=== PATIENT | female | born 1930 | race Caucasian/White ===

== ENCOUNTER 2021-06-25 06:18 | Inpatient (IN) | payer OTHER, MEDICARE ==
[2021-06-25] MEDS ORDERED: ACETAMINOPHEN 500 MG TABLET (FP) PO ONE (06:34)
[2021-06-25] MEDS ORDERED: ACETAMINOPHEN 325 MG TABLET (FP) PO ONE (06:34)
[2021-06-25] MEDS ORDERED: ACETAMINOPHEN 325 MG TABLET (FP) ONE (07:04)
[2021-06-25] MEDS ORDERED: TETRACAINE 0.5% HCL 0.6ML DROPPER.BOTTLE OD ONE (08:05)
[2021-06-25] MEDS ORDERED: FLUORESCEIN NA 1 EA STRIP OD ONE (08:05)
[2021-06-25] MEDS ORDERED: FLUORESCEIN NA 1 EA STRIP ONE (08:19)
[2021-06-25] MEDS ORDERED: TETRACAINE 0.5% OPHTH SOLN 2 ML BOTTLE ONE (08:21)
[2021-06-25 08:26] LABS: HEMOGLOBIN 13.9 GM/dL (10.7-15.3); MCH 30.9 pg (25.7-33.7); MCHC 31.5 g/dl (32.0-36.0); MEAN CELL VOLUME 98.1 fl (80-96); MEAN PLT VOLUME 8.3 fl (7.5-11.1); PLATELET COUNT 88 10^3/uL (134-434); RBC 4.49 M/mm3 (3.60-5.2); RDW 15.1 % (11.6-15.6)
[2021-06-25 08:34] LABS: INR 1.42 (0.83-1.09); PROTHROMBIN TIME (PATIENT) 16.4 SEC (9.7-13.0)
[2021-06-25 08:36] LABS: ACTIVATED PTT 35.5 SECONDS (25.2-36.5)
[2021-06-25 08:40] LABS: WHITE BLOOD COUNT 103.6 K/mm3 (4.0-10.0)
[2021-06-25 08:42] LABS: ALBUMIN 3.9 g/dl (3.4-5.0); BLOOD UREA NITROGEN 15.1 mg/dL (7-18); MAGNESIUM 2.1 mg/dL (1.8-2.4)
[2021-06-25 08:45] LABS: CREATININE 0.7 mg/dL (0.55-1.3)
[2021-06-25 08:46] LABS: TOT PROT 6.5 g/dl (6.4-8.2)
[2021-06-25 08:47] LABS: BILIRUBIN,TOTAL 0.6 mg/dL (0.2-1)
[2021-06-25 08:50] LABS: N-TERMINAL BNP 921.3 pg/ml (5-450)
[2021-06-25] MEDS ORDERED: SODIUM CHLORIDE 0.9% 500 ML INFUS.BAG IV ONE (09:20)
[2021-06-25] MEDS ORDERED: LOSARTAN POTASSIUM 50 MG TABLET PO ONE (12:15)
[2021-06-25 12:19] LABS: ANISOCYTOSIS 0; MACROCYTOSIS 0
[2021-06-25] MEDS ORDERED: PANTOPRAZOLE 40 MG TABLET ONE (12:22)
[2021-06-25] MEDS ORDERED: LOSARTAN POTASSIUM 50 MG TABLET ONE (12:22)
[2021-06-25] MEDS: PANTOPRAZOLE 40 MG TABLET PO SCH (12:42)
[2021-06-25] MEDS ORDERED: ACETAMINOPHEN 325 MG TABLET (FP) PO PRN (12:46)
[2021-06-25 15:06] LABS: URINE APPEARANCE CLEAR; URINE BILIRUBIN NEGATIVE (NEGATIVE); URINE COLOR YELLOW; URINE GLUCOSE (UA) NEGATIVE (NEGATIVE); URINE KETONE NEGATIVE (NEGATIVE); URINE LEUK ESTERASE NEGATIVE (NEGATIVE); URINE NITRITE NEGATIVE (NEGATIVE); URINE PROTEIN NEGATIVE (NEGATIVE); URINE UROBILINOGEN 0.2 mg/dL (0.2-1.0)
[2021-06-25 18:42] VITALS: BMI 26.6
[2021-06-25 21:38] LABS: HEMATOCRIT 40.9 % (32.4-45.2); HEMOGLOBIN 12.9 GM/dL (10.7-15.3); MCH 31.1 pg (25.7-33.7); MCHC 31.6 g/dl (32.0-36.0); MEAN CELL VOLUME 98.6 fl (80-96); PLATELET COUNT 87 10^3/uL (134-434); RBC 4.15 M/mm3 (3.60-5.2)
[2021-06-25 21:44] LABS: INR 1.4 (0.83-1.09); PROTHROMBIN TIME (PATIENT) 16.2 SEC (9.7-13.0)
[2021-06-25 21:45] LABS: WHITE BLOOD COUNT 113.6 K/mm3 (4.0-10.0)
[2021-06-25 21:46] LABS: ACTIVATED PTT 35.9 SECONDS (25.2-36.5)
[2021-06-25 22:33] LABS: ANISOCYTOSIS 1+; MACROCYTOSIS 1+; PLATELET ESTIMATE DECREASED
[2021-06-26] MEDS: LOSARTAN POTASSIUM 50 MG TABLET PO SCH (10:15)
[2021-06-26] MEDS: PANTOPRAZOLE 40 MG TABLET PO SCH (10:15)
[2021-06-27] MEDS: LOSARTAN POTASSIUM 50 MG TABLET PO SCH (09:55)
[2021-06-27] MEDS: PANTOPRAZOLE 40 MG TABLET PO SCH (09:55)
[2021-06-28 07:32] LABS: HEMATOCRIT 41.4 % (32.4-45.2); HEMOGLOBIN 13.7 GM/dL (10.7-15.3); MCH 32.2 pg (25.7-33.7); MCHC 33.1 g/dl (32.0-36.0); MEAN CELL VOLUME 97.2 fl (80-96); MEAN PLT VOLUME 8.6 fl (7.5-11.1); PLATELET COUNT 107 10^3/uL (134-434); RBC 4.26 M/mm3 (3.60-5.2)
[2021-06-28 08:28] LABS: WHITE BLOOD COUNT 145.5 K/mm3 (4.0-10.0)
[2021-06-28] MEDS: PANTOPRAZOLE 40 MG TABLET PO SCH (09:23)
[2021-06-28] MEDS: LOSARTAN POTASSIUM 50 MG TABLET PO SCH (09:23)
[2021-06-28 10:11] LABS: ANISOCYTOSIS 0; HELMET CELLS 0; HOWELL-JOLLY BODIES 0; MACROCYTOSIS 0; OVALOCYTE 0; ROULEAU 0; SICKELED CELLS 0; TARGET CELLS 0; TEAR DROP CELLS 0; TOXIC GRANULATION 0
[2021-06-28] MEDS: MULTIVITAMINS THER W-MINERALS COMBO TABLET (FP) PO SCH (13:39)
[2021-06-28] MEDS: CHOLECALCIFEROL (VIT D3) 1,000 UNIT (25 MCG) TABLET PO SCH (13:39)
[2021-06-28] MEDS: OMEGA-3 ACID ETHYL ESTERS (FATTY-ACIDS) 1 GM CAPSULE (FP) PO SCH ×2 (13:39→21:43)
[2021-06-28] MEDS: FLUoxetine HCL 20 MG CAPSULE PO SCH (13:39)
[2021-06-28] MEDS ORDERED: ROSUVASTATIN CA 5 MG TABLET PO SCH (22:00)
[2021-06-29 07:25] LABS: HEMATOCRIT 42.3 % (32.4-45.2); MEAN CELL VOLUME 97.1 fl (80-96); MEAN PLT VOLUME 8.1 fl (7.5-11.1); PLATELET COUNT 105 10^3/uL (134-434); RBC 4.36 M/mm3 (3.60-5.2); RDW 15.1 % (11.6-15.6)
[2021-06-29 07:37] LABS: WHITE BLOOD COUNT 148.6 K/mm3 (4.0-10.0)
[2021-06-29] MEDS: MULTIVITAMINS THER W-MINERALS COMBO TABLET (FP) PO SCH (09:33)
[2021-06-29] MEDS: FLUoxetine HCL 20 MG CAPSULE PO SCH (09:33)
[2021-06-29] MEDS: PANTOPRAZOLE 40 MG TABLET PO SCH (09:33)
[2021-06-29] MEDS: CHOLECALCIFEROL (VIT D3) 1,000 UNIT (25 MCG) TABLET PO SCH (09:33)
[2021-06-29] MEDS: OMEGA-3 ACID ETHYL ESTERS (FATTY-ACIDS) 1 GM CAPSULE (FP) PO SCH (09:33)
[2021-06-29] MEDS: LOSARTAN POTASSIUM 50 MG TABLET PO SCH (09:34)
[2021-06-29 09:39] LABS: ANISOCYTOSIS 0; HELMET CELLS 0; HOWELL-JOLLY BODIES 0; MACROCYTOSIS 0; OVALOCYTE 0; ROULEAU 0; SICKELED CELLS 0; TARGET CELLS 0; TEAR DROP CELLS 0; TOXIC GRANULATION 0
[2021-06-29 20:08] VITALS: BP 124/76; PULSE 94; TEMP 97.9
== END 2021-06-29 19:45 | DRG 184 ==
LOC: JER 06:18 → JERBED 10:01 → J4W 18:10 → UNDODISIN 06-26 05:30 → J4W 06-27 19:36
PROVIDERS: ADMIT Internal Medicine; ATTEND Internal Medicine
DX: S22.41XA Multiple fractures of ribs, right side, initial encounter for closed fracture (principal); S02.85XA Fracture of orbit, unspecified, initial encounter for closed fracture; S32.019A Unspecified fracture of first lumbar vertebra, initial encounter for closed fracture; S06.0X9A Concussion with loss of consciousness of unspecified duration, initial encounter; C91.10 Chronic lymphocytic leukemia of B-cell type not having achieved remission; I48.20 Chronic atrial fibrillation, unspecified; S02.2XXA Fracture of nasal bones, initial encounter for closed fracture; I10 Essential (primary) hypertension; J45.909 Unspecified asthma, uncomplicated; R16.2 Hepatomegaly with splenomegaly, not elsewhere classified; K57.90 Diverticulosis of intestine, part unspecified, without perforation or abscess without bleeding; D69.6 Thrombocytopenia, unspecified; R26.81 Unsteadiness on feet; M62.81 Muscle weakness (generalized); E78.5 Hyperlipidemia, unspecified; I25.10 Atherosclerotic heart disease of native coronary artery without angina pectoris; H05.231 Hemorrhage of right orbit; D72.829 Elevated white blood cell count, unspecified; W18.30XA Fall on same level, unspecified, initial encounter; W01.0XXA Fall on same level from slipping, tripping and stumbling without subsequent striking against object, initial encounter; Z95.5 Presence of coronary angioplasty implant and graft
CPT/HCPCS: 36415; 70450-TC; 70486-TC; 70498-TC; 71045-TC-FY; 71101-TC-RT-FY; 71260-TC; 72125-TC; 72170-TC-FY; 74177-TC; 80053; 81003; 83690; 83735; 83880; 84484; 85025; 85384; 85610; 85730; 86850; 86900; 86901; 87086; 93005; 93010; 93880-TC; 94010; 97116-GP; 97162-GP; 99285-25; C9803-CS; Q9967; U0003; U0005

== ENCOUNTER 2021-12-15 19:12 | Inpatient (IN) | payer OTHER, MEDICARE ==
[2021-12-15] MEDS ORDERED: VANCOMYCIN 1 GM in D5W (PRE-DOCKED) 1,000 MG/250 ML IVPB ONE (21:26)
[2021-12-15] MEDS ORDERED: PIPERACILLIN/TAZOB 4.5 GM 4.5 GM in DEXTROSE 5%-WATER 100 ML IVPB ONE (21:26)
[2021-12-15] MEDS ORDERED: PIPERACILLIN/TAZOB 4.5 GM 4.5 GM/100 ML BAG IVPB ONE (21:52)
[2021-12-15] MEDS ORDERED: VANCOMYCIN/WATER FOR INJ (PEG) 1,000 MG/200 ML BAG IVPB ONE (21:52)
[2021-12-15 21:58] LABS: VENOUS BASE EXCESS -1.9 mmol/L (-2-2); VENOUS O2 SATURATION 81.3 % (70-80); VENOUS PCO2 43.8 mmHg (38-52); VENOUS PH 7.352 (7.310-7.410)
[2021-12-15 22:05] LABS: BASO % 0.1 % (0-2.0); EOS % 0.2 % (0-4.5); HEMATOCRIT 38.5 % (32.4-45.2); HEMOGLOBIN 12.2 GM/dL (10.7-15.3); LYMPH % 90.6 % (8-40); MCH 31.7 pg (25.7-33.7); MCHC 31.8 g/dl (32.0-36.0); MEAN CELL VOLUME 99.7 fl (80-96); MEAN PLT VOLUME 9.1 fl (7.5-11.1); MONO % 2.1 % (3.8-10.2); RBC 3.86 M/mm3 (3.60-5.2); RDW 17.6 % (11.6-15.6)
[2021-12-15 22:09] LABS: PLATELET COUNT 26 10^3/uL (134-434); WHITE BLOOD COUNT 152.2 K/mm3 (4.0-10.0)
[2021-12-15 22:14] LABS: INR 1.44 (0.83-1.09); PROTHROMBIN TIME (PATIENT) 16.6 SEC (9.7-13.0)
[2021-12-15 22:17] LABS: ACTIVATED PTT 31.7 SECONDS (25.2-36.5)
[2021-12-15 22:28] LABS: CALCIUM 8.6 mg/dL (8.5-10.1); EPI CELLS 6 /uL (0-25.1); HYALINE CASTS 1 /uL (0-3.1); URINE APPEARANCE CLEAR; URINE BACTERIA 2 /uL (0-1359); URINE BILIRUBIN NEGATIVE (NEGATIVE); URINE COLOR DK YELLOW; URINE GLUCOSE (UA) NEGATIVE (NEGATIVE); URINE KETONE TRACE (NEGATIVE); URINE LEUK ESTERASE NEGATIVE (NEGATIVE); URINE NITRITE NEGATIVE (NEGATIVE); URINE PROTEIN 1+ (NEGATIVE); URINE RBC 16 /uL (0-23.9); URINE WBC 5 /uL (0-25.8)
[2021-12-15 22:29] LABS: ALBUMIN 3.7 g/dl (3.4-5.0); MAGNESIUM 2.1 mg/dL (1.8-2.4)
[2021-12-15 22:32] LABS: CREATININE 0.7 mg/dL (0.55-1.3)
[2021-12-15 22:37] LABS: N-TERMINAL BNP 2818.6 pg/ml (5-450)
[2021-12-15 22:43] LABS: ANISOCYTOSIS 2+; MACROCYTOSIS 0
[2021-12-16] MEDS ORDERED: FUROSEMIDE 40 MG/4 ML INJECTABLE VIAL IVPUSH ONE (01:38)
[2021-12-16] MEDS ORDERED: FUROSEMIDE 40 MG/4 ML INJECTABLE VIAL ONE (01:47)
[2021-12-16 09:55] LABS: HEMATOCRIT 37.9 % (32.4-45.2); HEMOGLOBIN 11.6 GM/dL (10.7-15.3); MCH 30.9 pg (25.7-33.7); MCHC 30.5 g/dl (32.0-36.0); MEAN CELL VOLUME 101.4 fl (80-96); MEAN PLT VOLUME 8.3 fl (7.5-11.1); RBC 3.74 M/mm3 (3.60-5.2); RDW 17.5 % (11.6-15.6)
[2021-12-16] MEDS ORDERED: APIXABAN 2.5 MG TABLET PO SCH (10:00)
[2021-12-16 10:04] LABS: PLATELET COUNT 19 10^3/uL (134-434); WHITE BLOOD COUNT 119.2 K/mm3 (4.0-10.0)
[2021-12-16 10:18] LABS: CALCIUM 8.5 mg/dL (8.5-10.1)
[2021-12-16 10:19] LABS: ALBUMIN 3.6 g/dl (3.4-5.0); BLOOD UREA NITROGEN 15.2 mg/dL (7-18); MAGNESIUM 2.1 mg/dL (1.8-2.4)
[2021-12-16 10:21] LABS: CREATININE 0.6 mg/dL (0.55-1.3); PHOSPHOROUS 4.1 mg/dL (2.5-4.9)
[2021-12-16 10:23] LABS: BILIRUBIN,TOTAL 1.1 mg/dL (0.2-1); TOT PROT 5.8 g/dl (6.4-8.2)
[2021-12-16 11:50] LABS: ANISOCYTOSIS 1+; MACROCYTOSIS 0
[2021-12-16] MEDS: METOPROLOL TARTRATE 25 MG TABLET (FP) PO SCH (22:08)
[2021-12-16] MEDS: GABAPENTIN 100 MG CAPSULE PO SCH (22:08)
[2021-12-16] MEDS: ZINC OXIDE 20% TOPICAL OINTMENT 30 GM TUBE TP SCH (22:09)
[2021-12-16] MEDS: NYSTATIN POWDER 100,000 UNITS/GM - 15 GM TOPICAL POWDER TP SCH (22:09)
[2021-12-17] MEDS: LEVOTHYROXINE NA 50 MCG TABLET (FP) PO SCH (06:21)
[2021-12-17] MEDS: FUROSEMIDE 40 MG/4 ML INJECTABLE VIAL IVPUSH SCH (06:52)
[2021-12-17] MEDS: METOPROLOL TARTRATE 25 MG TABLET (FP) PO SCH ×2 (09:31→21:40)
[2021-12-17] MEDS: GABAPENTIN 100 MG CAPSULE PO SCH ×2 (09:31→21:40)
[2021-12-17] MEDS: NYSTATIN POWDER 100,000 UNITS/GM - 15 GM TOPICAL POWDER TP SCH ×2 (09:32→21:42)
[2021-12-17] MEDS: ZINC OXIDE 20% TOPICAL OINTMENT 30 GM TUBE TP SCH ×2 (09:32→21:41)
[2021-12-17] MEDS ORDERED: FUROSEMIDE 40 MG/4 ML INJECTABLE VIAL IVPUSH SCH (10:00)
[2021-12-17] MEDS: FLUoxetine HCL 20 MG CAPSULE PO SCH (11:15)
[2021-12-17] MEDS: LOSARTAN POTASSIUM 50 MG TABLET PO SCH (11:15)
[2021-12-17 12:42] LABS: HEMATOCRIT 39.9 % (32.4-45.2); HEMOGLOBIN 12.1 GM/dL (10.7-15.3); MCH 30.5 pg (25.7-33.7); MCHC 30.3 g/dl (32.0-36.0); MEAN CELL VOLUME 100.7 fl (80-96); MEAN PLT VOLUME 9.4 fl (7.5-11.1); RBC 3.96 M/mm3 (3.60-5.2); RDW 17.7 % (11.6-15.6)
[2021-12-17 12:48] LABS: PLATELET COUNT 22 10^3/uL (134-434); WHITE BLOOD COUNT 112.6 K/mm3 (4.0-10.0)
[2021-12-17 13:04] LABS: ALBUMIN 3.6 g/dl (3.4-5.0); BLOOD UREA NITROGEN 14.2 mg/dL (7-18); CALCIUM 8.5 mg/dL (8.5-10.1)
[2021-12-17 13:08] LABS: CREATININE 0.5 mg/dL (0.55-1.3)
[2021-12-17 13:09] LABS: BILIRUBIN,TOTAL 1.3 mg/dL (0.2-1); TOT PROT 5.9 g/dl (6.4-8.2)
[2021-12-18] MEDS: LEVOTHYROXINE NA 50 MCG TABLET (FP) PO SCH (06:15)
[2021-12-18] MEDS: FUROSEMIDE 40 MG/4 ML INJECTABLE VIAL IVPUSH SCH (06:15)
[2021-12-18] MEDS ORDERED: BISACODYL 10 MG SUPP.RECT PR PRN (09:30)
[2021-12-18] MEDS ORDERED: BISACODYL 5 MG TABLET.DR (FP) PO ONE (09:30)
[2021-12-18] MEDS: METOPROLOL TARTRATE 25 MG TABLET (FP) PO SCH ×2 (09:49→22:00)
[2021-12-18] MEDS: GABAPENTIN 100 MG CAPSULE PO SCH ×2 (09:49→22:00)
[2021-12-18] MEDS: LOSARTAN POTASSIUM 50 MG TABLET PO SCH (09:49)
[2021-12-18] MEDS: FLUoxetine HCL 20 MG CAPSULE PO SCH (09:50)
[2021-12-18] MEDS: NYSTATIN POWDER 100,000 UNITS/GM - 15 GM TOPICAL POWDER TP SCH ×2 (09:50→22:00)
[2021-12-18] MEDS: ZINC OXIDE 20% TOPICAL OINTMENT 30 GM TUBE TP SCH ×2 (09:51→22:01)
[2021-12-18 10:30] LABS: HEMATOCRIT 40.5 % (32.4-45.2); MCH 30.2 pg (25.7-33.7); MCHC 29.7 g/dl (32.0-36.0); MEAN CELL VOLUME 101.6 fl (80-96); MEAN PLT VOLUME 9.3 fl (7.5-11.1); RBC 3.99 M/mm3 (3.60-5.2); RDW 17.6 % (11.6-15.6)
[2021-12-18 10:33] LABS: ALBUMIN 3.8 g/dl (3.4-5.0); BLOOD UREA NITROGEN 16.8 mg/dL (7-18); CALCIUM 8.9 mg/dL (8.5-10.1)
[2021-12-18 10:36] LABS: CREATININE 0.8 mg/dL (0.55-1.3)
[2021-12-18 10:39] LABS: BILIRUBIN,TOTAL 1.4 mg/dL (0.2-1)
[2021-12-18 10:59] LABS: WHITE BLOOD COUNT 135.4 K/mm3 (4.0-10.0)
[2021-12-18 11:00] LABS: PLATELET COUNT 22 10^3/uL (134-434)
[2021-12-19] MEDS: FUROSEMIDE 40 MG/4 ML INJECTABLE VIAL IVPUSH SCH (06:05)
[2021-12-19] MEDS: LEVOTHYROXINE NA 50 MCG TABLET (FP) PO SCH (06:05)
[2021-12-19] MEDS: METOPROLOL TARTRATE 25 MG TABLET (FP) PO SCH ×2 (09:10→21:43)
[2021-12-19] MEDS: LOSARTAN POTASSIUM 50 MG TABLET PO SCH (09:11)
[2021-12-19] MEDS: GABAPENTIN 100 MG CAPSULE PO SCH ×2 (09:11→21:43)
[2021-12-19] MEDS: NYSTATIN POWDER 100,000 UNITS/GM - 15 GM TOPICAL POWDER TP SCH ×2 (09:11→21:44)
[2021-12-19] MEDS: ZINC OXIDE 20% TOPICAL OINTMENT 30 GM TUBE TP SCH ×2 (09:12→21:44)
[2021-12-19] MEDS: FLUoxetine HCL 20 MG CAPSULE PO SCH (09:50)
[2021-12-19 12:42] LABS: HEMATOCRIT 40.2 % (32.4-45.2); HEMOGLOBIN 11.9 GM/dL (10.7-15.3); MCH 30.1 pg (25.7-33.7); MCHC 29.6 g/dl (32.0-36.0); MEAN CELL VOLUME 101.7 fl (80-96); MEAN PLT VOLUME 8.9 fl (7.5-11.1); RBC 3.95 M/mm3 (3.60-5.2)
[2021-12-19 12:55] LABS: PLATELET COUNT 17 10^3/uL (134-434)
[2021-12-19 13:11] LABS: BLOOD UREA NITROGEN 19.1 mg/dL (7-18); CALCIUM 9.1 mg/dL (8.5-10.1)
[2021-12-19 13:12] LABS: ALBUMIN 3.6 g/dl (3.4-5.0)
[2021-12-19 13:14] LABS: CREATININE 0.6 mg/dL (0.55-1.3)
[2021-12-19 13:15] LABS: BILIRUBIN,TOTAL 1.2 mg/dL (0.2-1)
[2021-12-19] MEDS ORDERED: POTASSIUM CHLORIDE ORAL LIQUID 20 MEQ/15 ML PO ONE (15:01)
[2021-12-19] MEDS: ROSUVASTATIN CA 5 MG TABLET PO SCH (21:43)
[2021-12-19] MEDS: CEPHALEXIN MONOHYDRATE 500 MG CAPSULE (UD) PO SCH (21:43)
[2021-12-20] MEDS: FUROSEMIDE 40 MG/4 ML INJECTABLE VIAL IVPUSH SCH (06:31)
[2021-12-20] MEDS: LEVOTHYROXINE NA 50 MCG TABLET (FP) PO SCH (06:31)
[2021-12-20 09:22] LABS: HEMATOCRIT 41.6 % (32.4-45.2); HEMOGLOBIN 12.3 GM/dL (10.7-15.3); MCH 30.1 pg (25.7-33.7); MCHC 29.6 g/dl (32.0-36.0); MEAN CELL VOLUME 101.7 fl (80-96); MEAN PLT VOLUME 8.4 fl (7.5-11.1); RBC 4.08 M/mm3 (3.60-5.2); RDW 17.2 % (11.6-15.6)
[2021-12-20 09:26] LABS: PLATELET COUNT 16 10^3/uL (134-434); WHITE BLOOD COUNT 133.2 K/mm3 (4.0-10.0)
[2021-12-20 09:44] LABS: CALCIUM 9.1 mg/dL (8.5-10.1)
[2021-12-20 09:45] LABS: BLOOD UREA NITROGEN 21.1 mg/dL (7-18); MAGNESIUM 2.2 mg/dL (1.8-2.4)
[2021-12-20 09:47] LABS: PHOSPHOROUS 3.3 mg/dL (2.5-4.9)
[2021-12-20 09:48] LABS: CREATININE 0.7 mg/dL (0.55-1.3)
[2021-12-20] MEDS ORDERED: PATIENT'S OWN MEDICATION (NON-FORMULARY) (Biotin [Biotin] 5,000 MCG Tab.Rapdis) PO SCH (10:00)
[2021-12-20] MEDS ORDERED: PATIENT'S OWN MEDICATION (NON-FORMULARY) (Cyclosporine [Restasis] 1 EACH Droperette) OP SCH (10:00)
[2021-12-20] MEDS ORDERED: PATIENT'S OWN MEDICATION (NON-FORMULARY) (Multivit-Min/Fa/Lycopen/Lutein [Centrum Silver T PO SCH (10:00)
[2021-12-20] MEDS ORDERED: PATIENT'S OWN MEDICATION (NON-FORMULARY) (Ubidecarenone [Coq-10] 100 MG Capsule) PO SCH (10:00)
[2021-12-20] MEDS: OMEGA-3 ACID ETHYL ESTERS (FATTY-ACIDS) 1 GM CAPSULE (FP) PO SCH (10:18)
[2021-12-20] MEDS: GABAPENTIN 100 MG CAPSULE PO SCH ×2 (10:19→21:48)
[2021-12-20] MEDS: METOPROLOL TARTRATE 25 MG TABLET (FP) PO SCH ×2 (10:19→21:48)
[2021-12-20] MEDS: CEPHALEXIN MONOHYDRATE 500 MG CAPSULE (UD) PO SCH ×2 (10:19→21:48)
[2021-12-20] MEDS: LOSARTAN POTASSIUM 50 MG TABLET PO SCH (10:19)
[2021-12-20] MEDS: FLUoxetine HCL 20 MG CAPSULE PO SCH (10:20)
[2021-12-20] MEDS: ZINC OXIDE 20% TOPICAL OINTMENT 30 GM TUBE TP SCH ×2 (10:20→21:49)
[2021-12-20] MEDS: NYSTATIN POWDER 100,000 UNITS/GM - 15 GM TOPICAL POWDER TP SCH ×2 (10:21→21:49)
[2021-12-21] MEDS: FUROSEMIDE 40 MG/4 ML INJECTABLE VIAL IVPUSH SCH (07:10)
[2021-12-21] MEDS: LEVOTHYROXINE NA 50 MCG TABLET (FP) PO SCH (07:10)
[2021-12-21 09:57] LABS: HEMATOCRIT 40.8 % (32.4-45.2); HEMOGLOBIN 12.4 GM/dL (10.7-15.3); MCH 30.5 pg (25.7-33.7); MCHC 30.3 g/dl (32.0-36.0); MEAN CELL VOLUME 100.7 fl (80-96); MEAN PLT VOLUME 8.8 fl (7.5-11.1); RBC 4.05 M/mm3 (3.60-5.2); RDW 16.9 % (11.6-15.6)
[2021-12-21 10:01] LABS: PLATELET COUNT 16 10^3/uL (134-434)
[2021-12-21 10:28] LABS: BLOOD UREA NITROGEN 19.4 mg/dL (7-18); CALCIUM 9.1 mg/dL (8.5-10.1); MAGNESIUM 2.1 mg/dL (1.8-2.4)
[2021-12-21 10:32] LABS: CREATININE 0.7 mg/dL (0.55-1.3)
[2021-12-21] MEDS: LOSARTAN POTASSIUM 50 MG TABLET PO SCH (11:12)
[2021-12-21] MEDS: METOPROLOL TARTRATE 25 MG TABLET (FP) PO SCH ×2 (11:12→22:09)
[2021-12-21] MEDS: GABAPENTIN 100 MG CAPSULE PO SCH ×2 (11:12→22:09)
[2021-12-21] MEDS: OMEGA-3 ACID ETHYL ESTERS (FATTY-ACIDS) 1 GM CAPSULE (FP) PO SCH (11:13)
[2021-12-21] MEDS: FLUoxetine HCL 20 MG CAPSULE PO SCH (11:13)
[2021-12-21] MEDS: CEPHALEXIN MONOHYDRATE 500 MG CAPSULE (UD) PO SCH ×2 (11:13→22:09)
[2021-12-21] MEDS: ZINC OXIDE 20% TOPICAL OINTMENT 30 GM TUBE TP SCH ×2 (11:14→22:10)
[2021-12-21] MEDS: NYSTATIN POWDER 100,000 UNITS/GM - 15 GM TOPICAL POWDER TP SCH ×2 (11:14→22:10)
[2021-12-21] MEDS: predniSONE 20 MG TABLET (UD) PO SCH (13:28)
[2021-12-22] MEDS: FUROSEMIDE 40 MG/4 ML INJECTABLE VIAL IVPUSH SCH (06:37)
[2021-12-22] MEDS: LEVOTHYROXINE NA 50 MCG TABLET (FP) PO SCH (06:37)
[2021-12-22] MEDS: OMEGA-3 ACID ETHYL ESTERS (FATTY-ACIDS) 1 GM CAPSULE (FP) PO SCH (10:53)
[2021-12-22] MEDS: GABAPENTIN 100 MG CAPSULE PO SCH ×2 (10:54→21:34)
[2021-12-22] MEDS: predniSONE 20 MG TABLET (UD) PO SCH (10:54)
[2021-12-22] MEDS: CEPHALEXIN MONOHYDRATE 500 MG CAPSULE (UD) PO SCH ×2 (10:54→21:34)
[2021-12-22] MEDS: FLUoxetine HCL 20 MG CAPSULE PO SCH (10:55)
[2021-12-22] MEDS: ZINC OXIDE 20% TOPICAL OINTMENT 30 GM TUBE TP SCH ×2 (10:56→21:34)
[2021-12-22] MEDS: NYSTATIN POWDER 100,000 UNITS/GM - 15 GM TOPICAL POWDER TP SCH ×2 (10:57→21:34)
[2021-12-22 11:25] LABS: HEMATOCRIT 38.8 % (32.4-45.2); HEMOGLOBIN 12.1 GM/dL (10.7-15.3); MCH 30.7 pg (25.7-33.7); MCHC 31.2 g/dl (32.0-36.0); MEAN CELL VOLUME 98.4 fl (80-96); MEAN PLT VOLUME 9.4 fl (7.5-11.1); RBC 3.95 M/mm3 (3.60-5.2); RDW 17.4 % (11.6-15.6)
[2021-12-22 11:30] LABS: PLATELET COUNT 32 10^3/uL (134-434); WHITE BLOOD COUNT 158.8 K/mm3 (4.0-10.0)
[2021-12-22 11:57] LABS: BLOOD UREA NITROGEN 28.7 mg/dL (7-18)
[2021-12-22 11:58] LABS: CREATININE 0.9 mg/dL (0.55-1.3); MAGNESIUM 2.2 mg/dL (1.8-2.4); PHOSPHOROUS 3.7 mg/dL (2.5-4.9)
[2021-12-22 11:59] LABS: CALCIUM 9.5 mg/dL (8.5-10.1)
[2021-12-22] MEDS: PANTOPRAZOLE 40 MG TABLET PO SCH (13:50)
[2021-12-22] MEDS: LOSARTAN POTASSIUM 50 MG TABLET PO SCH (13:53)
[2021-12-22] MEDS: METOPROLOL TARTRATE 25 MG TABLET (FP) PO SCH (13:55)
[2021-12-22] MEDS: ROSUVASTATIN CA 5 MG TABLET PO SCH (21:34)
[2021-12-23] MEDS: LEVOTHYROXINE NA 50 MCG TABLET (FP) PO SCH (06:49)
[2021-12-23] MEDS ORDERED: DOCUSATE SODIUM 100 MG CAPSULE (FP) PO PRN (09:50)
[2021-12-23 10:04] LABS: HEMATOCRIT 37.8 % (32.4-45.2); HEMOGLOBIN 12.3 GM/dL (10.7-15.3); MCH 31.9 pg (25.7-33.7); MCHC 32.6 g/dl (32.0-36.0); MEAN CELL VOLUME 97.7 fl (80-96); MEAN PLT VOLUME 9.2 fl (7.5-11.1); PLATELET COUNT 48 10^3/uL (134-434); RBC 3.87 M/mm3 (3.60-5.2); RDW 16.8 % (11.6-15.6)
[2021-12-23 10:18] LABS: WHITE BLOOD COUNT 167.4 K/mm3 (4.0-10.0)
[2021-12-23 10:37] LABS: CALCIUM 9.4 mg/dL (8.5-10.1)
[2021-12-23 10:38] LABS: BLOOD UREA NITROGEN 29.3 mg/dL (7-18); MAGNESIUM 2.3 mg/dL (1.8-2.4)
[2021-12-23 10:40] LABS: PHOSPHOROUS 3.1 mg/dL (2.5-4.9)
[2021-12-23 10:41] LABS: CREATININE 0.7 mg/dL (0.55-1.3)
[2021-12-23] MEDS: POLYETHYLENE GLYCOL (HEALTHYLAX) 3350 17 GM PACKET PO SCH (11:55)
[2021-12-23] MEDS: predniSONE 20 MG TABLET (UD) PO SCH (11:55)
[2021-12-23] MEDS: CEPHALEXIN MONOHYDRATE 500 MG CAPSULE (UD) PO SCH ×2 (11:55→21:48)
[2021-12-23] MEDS: PANTOPRAZOLE 40 MG TABLET PO SCH (11:56)
[2021-12-23] MEDS: GABAPENTIN 100 MG CAPSULE PO SCH ×2 (11:56→21:48)
[2021-12-23] MEDS: OMEGA-3 ACID ETHYL ESTERS (FATTY-ACIDS) 1 GM CAPSULE (FP) PO SCH (11:56)
[2021-12-23] MEDS: FLUoxetine HCL 20 MG CAPSULE PO SCH (11:58)
[2021-12-23] MEDS: NYSTATIN POWDER 100,000 UNITS/GM - 15 GM TOPICAL POWDER TP SCH ×2 (12:02→21:48)
[2021-12-23] MEDS: ZINC OXIDE 20% TOPICAL OINTMENT 30 GM TUBE TP SCH ×2 (12:03→21:49)
[2021-12-24] MEDS: LEVOTHYROXINE NA 50 MCG TABLET (FP) PO SCH (06:13)
[2021-12-24] MEDS: POLYETHYLENE GLYCOL (HEALTHYLAX) 3350 17 GM PACKET PO SCH (09:08)
[2021-12-24] MEDS: PANTOPRAZOLE 40 MG TABLET PO SCH (09:08)
[2021-12-24] MEDS: GABAPENTIN 100 MG CAPSULE PO SCH ×2 (09:08→21:35)
[2021-12-24] MEDS: OMEGA-3 ACID ETHYL ESTERS (FATTY-ACIDS) 1 GM CAPSULE (FP) PO SCH (09:08)
[2021-12-24] MEDS: FLUoxetine HCL 20 MG CAPSULE PO SCH (09:09)
[2021-12-24] MEDS: CEPHALEXIN MONOHYDRATE 500 MG CAPSULE (UD) PO SCH ×2 (09:09→21:35)
[2021-12-24] MEDS: NYSTATIN POWDER 100,000 UNITS/GM - 15 GM TOPICAL POWDER TP SCH ×2 (09:10→22:39)
[2021-12-24] MEDS: ZINC OXIDE 20% TOPICAL OINTMENT 30 GM TUBE TP SCH ×2 (09:10→23:39)
[2021-12-24 09:46] LABS: HEMATOCRIT 38.3 % (32.4-45.2); HEMOGLOBIN 12.2 GM/dL (10.7-15.3); MCH 31.2 pg (25.7-33.7); MCHC 31.9 g/dl (32.0-36.0); PLATELET COUNT 53 10^3/uL (134-434); RBC 3.91 M/mm3 (3.60-5.2); RDW 17.2 % (11.6-15.6)
[2021-12-24] MEDS ORDERED: predniSONE 20 MG TABLET (UD) PO ONE (10:00)
[2021-12-24 10:10] LABS: ALBUMIN 3.6 g/dl (3.4-5.0); MAGNESIUM 2.4 mg/dL (1.8-2.4)
[2021-12-24 10:11] LABS: BLOOD UREA NITROGEN 20.7 mg/dL (7-18)
[2021-12-24 10:13] LABS: PHOSPHOROUS 2.5 mg/dL (2.5-4.9)
[2021-12-24 10:14] LABS: CREATININE 0.6 mg/dL (0.55-1.3)
[2021-12-24 10:15] LABS: BILIRUBIN,TOTAL 0.8 mg/dL (0.2-1); TOT PROT 6.1 g/dl (6.4-8.2)
[2021-12-24 12:09] LABS: ANISOCYTOSIS 0; MACROCYTOSIS 0; PLATELET ESTIMATE DECREASED
[2021-12-25] MEDS: LEVOTHYROXINE NA 50 MCG TABLET (FP) PO SCH (06:26)
[2021-12-25] MEDS: FUROSEMIDE 40 MG/4 ML INJECTABLE VIAL IVPUSH SCH (06:26)
[2021-12-25] MEDS: NYSTATIN POWDER 100,000 UNITS/GM - 15 GM TOPICAL POWDER TP SCH ×2 (10:36→21:52)
[2021-12-25] MEDS: CEPHALEXIN MONOHYDRATE 500 MG CAPSULE (UD) PO SCH ×2 (10:37→21:51)
[2021-12-25] MEDS: POLYETHYLENE GLYCOL (HEALTHYLAX) 3350 17 GM PACKET PO SCH (10:37)
[2021-12-25] MEDS: OMEGA-3 ACID ETHYL ESTERS (FATTY-ACIDS) 1 GM CAPSULE (FP) PO SCH (10:37)
[2021-12-25] MEDS: PANTOPRAZOLE 40 MG TABLET PO SCH (10:37)
[2021-12-25] MEDS: GABAPENTIN 100 MG CAPSULE PO SCH ×2 (10:37→21:52)
[2021-12-25] MEDS: ZINC OXIDE 20% TOPICAL OINTMENT 30 GM TUBE TP SCH ×2 (10:37→21:52)
[2021-12-25] MEDS: FLUoxetine HCL 20 MG CAPSULE PO SCH (10:46)
[2021-12-25 13:19] LABS: HEMATOCRIT 39.2 % (32.4-45.2); HEMOGLOBIN 12.5 GM/dL (10.7-15.3); MCH 31.1 pg (25.7-33.7); MCHC 31.9 g/dl (32.0-36.0); MEAN CELL VOLUME 97.4 fl (80-96); MEAN PLT VOLUME 8.9 fl (7.5-11.1); PLATELET COUNT 62 10^3/uL (134-434); RBC 4.02 M/mm3 (3.60-5.2); RDW 16.6 % (11.6-15.6)
[2021-12-25 13:28] LABS: WHITE BLOOD COUNT 167.1 K/mm3 (4.0-10.0)
[2021-12-25] MEDS: METOPROLOL TARTRATE 25 MG TABLET (FP) PO SCH (23:51)
[2021-12-26] MEDS: LEVOTHYROXINE NA 50 MCG TABLET (FP) PO SCH (06:19)
[2021-12-26 08:50] VITALS: PULSE 76
[2021-12-26] MEDS ORDERED: FUROSEMIDE 40 MG TABLET (FP) PO SCH (10:00)
[2021-12-26] MEDS: ZINC OXIDE 20% TOPICAL OINTMENT 30 GM TUBE TP SCH (10:24)
[2021-12-26] MEDS: METOPROLOL TARTRATE 25 MG TABLET (FP) PO SCH (10:25)
[2021-12-26] MEDS: CEPHALEXIN MONOHYDRATE 500 MG CAPSULE (UD) PO SCH (10:25)
[2021-12-26] MEDS: PANTOPRAZOLE 40 MG TABLET PO SCH (10:25)
[2021-12-26] MEDS: GABAPENTIN 100 MG CAPSULE PO SCH (10:25)
[2021-12-26] MEDS: LOSARTAN POTASSIUM 50 MG TABLET PO SCH (10:25)
[2021-12-26] MEDS: NYSTATIN POWDER 100,000 UNITS/GM - 15 GM TOPICAL POWDER TP SCH (10:26)
[2021-12-26] MEDS: OMEGA-3 ACID ETHYL ESTERS (FATTY-ACIDS) 1 GM CAPSULE (FP) PO SCH (10:26)
[2021-12-26] MEDS: FLUoxetine HCL 20 MG CAPSULE PO SCH (10:29)
[2021-12-26] MEDS: POLYETHYLENE GLYCOL (HEALTHYLAX) 3350 17 GM PACKET PO SCH (11:45)
[2021-12-26 15:12] VITALS: BMI 24.6
[2021-12-26] MEDS ORDERED: GLYCERIN 1 RECTAL SUPPOSITORY, ADULT RC ONE (15:33)
[2021-12-26 15:58] VITALS: BP 112/61; RESP 22; TEMP 97.7
== END 2021-12-26 17:13 | disposition home health service (06) | DRG 291 ==
LOC: JER 19:12 → JERBED 21:58 → J5S 12-16 17:44
PROVIDERS: ADMIT Internal Medicine; ATTEND Internal Medicine
DX: I11.0 Hypertensive heart disease with heart failure (principal); I50.33 Acute on chronic diastolic (congestive) heart failure; C91.10 Chronic lymphocytic leukemia of B-cell type not having achieved remission; R18.8 Other ascites; I25.10 Atherosclerotic heart disease of native coronary artery without angina pectoris; E78.5 Hyperlipidemia, unspecified; D69.6 Thrombocytopenia, unspecified; I48.91 Unspecified atrial fibrillation; Z79.01 Long term (current) use of anticoagulants; J45.909 Unspecified asthma, uncomplicated; Z86.16 Personal history of COVID-19; I35.0 Nonrheumatic aortic (valve) stenosis; I73.9 Peripheral vascular disease, unspecified; E03.9 Hypothyroidism, unspecified; B35.6 Tinea cruris; D50.9 Iron deficiency anemia, unspecified; R29.6 Repeated falls; F32.A Depression, unspecified
CPT/HCPCS: 0241U-QW; 36415; 71045-TC-FY; 71046-TC-FY; 71275-TC; 76604; 80048; 80053; 80061; 81003; 82272; 82607; 82728; 82803; 83540; 83550; 83605; 83615; 83735; 83880; 84100; 84155; 84165; 84443; 84484; 85025; 85027; 85610; 85730; 87040; 87086; 93005; 93010; 93306-TC; 93970-TC; 94010; 97116-GP; 97161-GP; 99285-25; Q9967